=== PATIENT | male | born 1995 | race Hispanic/Latino ===

== ENCOUNTER → 2021-10-03 11:49 | Outpatient (CLI) | payer OTHER, SELFPAY | PROVIDERS: Family Provider Pediatrics; PCP Pediatrics; Referring Provider Pediatrics; Visit Provider Pediatrics | DX: G56.20 Lesion of ulnar nerve, unspecified upper limb (principal) | CPT/HCPCS: 95886; 95910 ==

== ENCOUNTER → 2025-08-07 12:56 | Outpatient (CLI) | payer OTHER, SELFPAY | LOC: RESP 12:57 | PROVIDERS: Family Provider Pediatrics; PCP Pediatrics; Referring Provider Chiropractor; Visit Provider Chiropractor | DX: R06.02 Shortness of breath (principal); I25.9 Chronic ischemic heart disease, unspecified | CPT/HCPCS: 94060 ==

== ENCOUNTER → 2025-08-07 14:41 | Outpatient (CLI) | payer OTHER, SELFPAY ==
--- NOTE | 2025-08-07 14:42 | DI.ECHO.S_ITS ---
[facility] +---------+ [facility] : : [address] : : [place] : : [id number] : : Phone: [phone] Echocardiogram Report + + :Name: ESTELA HAQUE Study Date: 08/07/2025 Height: 71 in : :Hospital ReadingLocation: Weight: 215 lb : : Gender: Male BSA: 2.2 m2 : :: 1995 Age: 29 yrs BP: 136/78 mmHg: :Reason For Study: SHORTNESS OF BREATH : :Ordering Physician: NIMESH, : :TRISH Performed By: Shahid Del Angel : :Referring: TRISH TRUJILLO : + + Interpretation Summary The ejection fraction is estimated to be 55-60%. Diastolic parameters suggest probable normal left ventricular diastolic function and normal filling pressures. The right ventricle is normal in size and function. No valvular abnormalities. Pulmonary artery pressures cannot be estimated because of the lack of a measurable TR jet velocity. Procedure: A two-dimensional transthoracic echocardiogram with color flow and Doppler was performed. The study quality was technically good. There is no prior echocardiogram noted for this patient. The patient was in normal sinus rhythm during the exam. Left Ventricle: The left ventricle is normal in size. Left ventricular wall thickness is mildly increased. There is no ventricular septal defect visualized. The ejection fraction is estimated to be 55-60%. There are no focal wall motion abnormalities. Diastolic parameters suggest probable normal left ventricular diastolic function and normal filling pressures. Right Ventricle: The right ventricle is normal in size and function. Atria: The left atrial size is normal. Right atrial size is normal. There is no Doppler evidence for an interatrial shunt. Mitral Valve: The mitral valve leaflets appear normal. There is no evidence of stenosis, fluttering, or prolapse. There is trace mitral regurgitation. Aortic Valve: The aortic valve is trileaflet. The aortic valve opens well. There is no aortic valve stenosis. No aortic regurgitation is present. Tricuspid Valve: The tricuspid valve leaflets are thin and pliable. There is trace tricuspid regurgitation. Pulmonary artery pressures cannot be estimated because of the lack of a measurable TR jet velocity. Pulmonic Valve: The pulmonic valve is not well seen, but is grossly normal. There is no pulmonic valvular regurgitation. Great Vessels: The aortic root is normal size. The dimensions of the ascending aorta are normal. The pulmonary artery is normal size. The inferior vena cava was not visualized. Pericardium/ Pleura There is no pericardial effusion. MMode/2D Measurements & Calculations LVIDd: 4.7 cm LVOT diam: 2.1 cm LVIDs: 3.1 cm Ao root diam: 3.4 cm FS: 33.4 % asc Aorta Diam: 2.8 cm EPSS: 0.57 cm Ao Arch Diam (Prox Trans): 1.5 cm IVSd: 1.1 cm LVPWd: 0.88 cm LV raymond. diameter/BSA (cm/m^2): 2.1 LV sys. diameter/BSA (cm/m^2): 1.4 LA A2 area: 18.3 cm2 RA long axis: 5.8 cm LA A4 area: 17.5 cm2 RA area: 15.2 cm2 LA length (vol): 5.2 cm RA vol: 33.9 ml LA vol: 51.7 ml RA : 15.6 ml/m2 LA vol index: 23.8 ml/m2 RVD1 (basal): 3.2 cm RVD2 (mid): 2.2 cm TAPSE: 3.3 cm Doppler Measurements & Calculations Ao V2 max: 167.0 cm/sec LVOT Max Arnulfo: 128.2 cm/sec Ao V2 mean: 120.3 cm/sec LV V1 max P.6 mmHg Ao max P.2 mmHg LV V1 VTI: 26.1 cm Ao mean P.4 mmHg DEJON(I,D): 2.7 cm2 Ao V2 VTI: 33.9 cm DEJON(V,D): 2.7 cm2 sev ratio: 0.77 DEJON indexed to BSA (cm^2/m^2): 1.3 MV E max arnulfo: 79.4 cm/sec TR max arnulfo: 227.9 cm/sec MV A max arnulfo: 43.0 cm/sec TR max P.8 mmHg MV E/A: 1.8 PA V2 max: 119.0 cm/sec Med Peak E' Arnulfo: 13.5 cm/sec PA V2 mean: 82.3 cm/sec E/E' med: 5.9 PA mean P.0 mmHg Lat Peak E' Arnulfo: 16.8 cm/sec PA pr(Accel): 31.0 mmHg E/E' lat: 4.7 E/e' average: 5.3 MV dec time: 0.15 sec SV(LVOT): 92.7 ml Reading Physician:04:09 PM
== END ==
LOC: ECHO 14:42
PROVIDERS: Family Provider Pediatrics; PCP Pediatrics; Referring Provider Pediatrics; Visit Provider Chiropractor
DX: I25.9 Chronic ischemic heart disease, unspecified (principal); R06.02 Shortness of breath
CPT/HCPCS: 93306